=== PATIENT | female | born 1985 | race Caucasian/White ===

== ENCOUNTER 2024-04-02 16:26 | Emergency (ER) | payer OTHER ==
[~2024-04-02] VITALS: Ht 160 cm; Wt 75.7 kg
[2024-04-02] MEDS ORDERED: ACETAMINOPHEN ES 500 MG TABLET ONE (20:39)
[2024-04-02] MEDS ORDERED: METOCLOPRAMIDE HCL 10 MG/2 ML VIAL ONE (20:39)
[2024-04-02] MEDS: diphenhydrAMINE HCL 50 MG/ML VIAL IV ONE (20:52)
[2024-04-02] MEDS: METOCLOPRAMIDE HCL 10 MG/2 ML VIAL IV ONE (20:53)
[2024-04-02] MEDS: IV NS 0.9% 1,000 ML BAG IV ONE (20:53)
[2024-04-02] MEDS: ACETAMINOPHEN ES 500 MG TABLET PO ONE (20:53)
[2024-04-02 23:10] VITALS: BP 129/88; TEMP 97.8; O2SAT 98
== END 2024-04-02 23:12 | disposition home or self-care (01) ==
LOC: ER 16:36
DX: G43.909 Migraine, unspecified, not intractable, without status migrainosus (principal); H53.149 Visual discomfort, unspecified; H53.8 Other visual disturbances; R42 Dizziness and giddiness
CPT/HCPCS: 99284; 96374; 96361; 96375; J1200; J2765